=== PATIENT | female | born 1985 | race Caucasian/White ===

== ENCOUNTER → 2020-06-05 | Outpatient (CLI) | payer OTHER, SELFPAY ==
--- NOTE | 2020-06-05 | CYST_PTH ---
PATIENT: DENISE BAILEY LOC: [facility] U#:[id number] AGE/SX: 35/F ROOM: RE06/05/[address]: Dr. Ry Malcolm DDS : 1985 BED: DIS: 06/05/2020 SPEC #: [id number] RECD: 06/05/20 10:23 STATUS: KEEGAN FLETCHER #: [id number] BENJAMIN: 06/05/20 00:[address]: Ry Malcolm DEPT: SURGICAL PATHOLOGY RECD BY: Kathy Armas Tissues: CYST Procedures: Surgery Specimen Level IV HEADER OPERATION: Recurrent cyst from 2016 PRE-OP DIAGNOSIS: This was originally associated with impacted tooth; probable dentigerous cyst TISSUE SUBMITTED: Left mandible (bone cyst) MICROSCOPIC DIAGNOSIS Left mandible bone cyst, excision: Consistent with dentigerous cyst, inflamed. AM:rod 06/06/2020 COMMENT Case has been reviewed in consultation with Dr. Lynch who concurs with the above diagnosis. IDC:SJ MICROSCOPIC DESCRIPTION Slides are reviewed. GROSS DESCRIPTION Received is one container labeled with the patient's name and not further designated. The specimen consists of multiple irregular fragments of pink-[place] soft tissue that in aggregate measure 2 x 1.5 x 0.2 cm. The specimen is totally submitted in one cassette. / AM:rod 06/05/20 TC:5 CPT: 98484
== END | disposition home or self-care (01) ==
LOC: LABSPEC 10:46
PROVIDERS: Visit Provider Dentist Oral and Maxillofacial Surgery
DX: M27.40 Unspecified cyst of jaw (principal)
CPT/HCPCS: 88304; 88305